=== PATIENT | female | born 1980 | race Caucasian/White ===

== ENCOUNTER 2018-03-15 09:11 | Day surgery (SDC) | payer OTHER ==
[2018-03-15] MEDS ORDERED: SODIUM CHLORIDE 0.9% 500 ML IV ONE (09:32)
[2018-03-15] MEDS ORDERED: ONDANSETRON HCL IV 4 MG/2 ML VIAL IV ONE (09:32)
[2018-03-15] MEDS ORDERED: HYDROMORPHONE HCL 2 MG/ML VIAL IVP ONE ×3 (09:32→10:53)
--- NOTE | 2018-03-15 09:43 | Emergency Department Record ---
History of Present Illness - General Chief Complaint: Abdominal Pain Stated Complaint: UPPER RIGHT QUAD PAIN Time Seen by Provider: 03/15/18 09:30 Source: Patient Mode of Arrival: Ambulatory Limitations: No limitations - History of Present Illness Initial Comments: The patient is here with sharp stabbing RUQ AP for the last 5 hours. The symptoms have been intermittent and fairly severe right now. She has had nausea and vomiting with it and the pain seems to radiate around to her side. There has been no lower AP, fever, chills, or dysuria. MD Complaint: Abdominal pain Onset/Timin -: Hour(s) Location: RUQ Radiation: Back Severity: Moderate Severity scale (1-10): 7 Quality: Aching, Stabbing Consistency: Constant Improves With: Nothing Worsens With: Nothing Context: Other Associated Symptoms: Denies other symptoms - Related Data LMP Date: 01/26/18 LMP (females 10-50): 1 month ago Patient : No (Possible) Allergies Allergy/AdvReac Type Severity Reaction Status Date / Time latex Allergy RASH Verified 03/15/18 09:16 peanut Allergy VOMITING Verified 03/15/18 09:16 silicone Allergy BLISTERS Verified 03/15/18 09:16 codeine AdvReac VOMITING Verified 03/15/18 09:14 mushroom AdvReac HEADACHE Verified 03/15/18 11:58 Travel Screening - Travel/Exposure Within Last 30 Days Have you traveled within the last 30 days?: No - Travel/Exposure Within Last Year Have you traveled outside the [place] in the last year?: No - Additonal Travel Details Have you been exposed to anyone with a communicable illness?: No - Travel Symptoms Symptom Screening: None Review of Systems Constitutional: Denies: Chills, Fever Eyes: Denies: Eye discharge ENT: Denies: Congestion Respiratory: Denies: Cough, Dyspnea Past Medical History - SOCIAL HISTORY Smoking Status: Current every day smoker Alcohol Use: Rare Drug Use: None - RESPIRATORY Hx Respiratory Disorders: No - CARDIOVASCULAR Hx Cardio Disorders: No - NEURO Hx Neuro Disorders: No - GI Hx GI Disorders: No - Hx Genitourinary Disorders: No - ENDOCRINE Hx Endocrine Disorders: No - MUSCULOSKELETAL Hx Musculoskeletal Disorders: No - PSYCH Hx Psych Problems: No - HEMATOLOGY/ONCOLOGY Hx Hematology/Oncology Disorders: No Family Medical History Any Significant Family History?: Yes Hx Cancer: Mother, Grandparents Hx Diabetes: Father, Grandparents Hx Heart Disease: Father, Grandparents Hx HTN: Father, Grandparents Physical Exam - General General Appearance: Alert, Oriented x3, Cooperative, Mild distress (due to AP.) - Head Head exam: Atraumatic, Normocephalic - Eye Eye exam: Normal appearance, PERRL - Neck Neck exam: Normal inspection, Full ROM. negative: Tenderness - Respiratory Respiratory exam: Normal lung sounds bilaterally. negative: Respiratory distress - Cardiovascular Cardiovascular Exam: Regular rate, Normal rhythm, Normal heart sounds Course Vital Signs 03/15/18 09:16 Temperature 97.8 F Pulse Rate 72 Respiratory 20 Rate Blood Pressure 146/78 Pulse Ox 94 L - Reevaluation(s) Reevaluation #1: The patient is doing better but is still having significant pain. I did explain the US report and the need for surgical consultation. We will contact Dr. Lowery for further evaluation. 03/15/18 10:55 Reevaluation #2: The patient is doing better at this time but is still in pain. I did discuss the case with Dr. Lowery and he would like to admit the patient to the hospital overnight and do surgery in the AM tomorrow. I did discuss this with the patient and she did agree to that plan vs being transferred to another hospital. 03/15/18 11:08 Medical Decision Making - Data Complexity MDM Data: Labs Ordered and/or Reviewed, X-Ray Ordered and/or Reviewed - Lab Data Result diagrams: 03/15/18 09:25 03/15/18 09:25 - Radiology Data Radiology results: Report reviewed (US: multiple gallstones with a stone stuck in the neck of the GB, O/W neg.) Disposition Disposition: Admit Clinical Impression: Biliary calculus with obstruction without cholecystitis Disposition: Still a Patient at [facility] Decision to Admit: Admit from ER Decision to Admit Date: 03/15/18 Decision to Admit Time: 11:09 Accepting Physician: Beverley Time Discussed w/Accepting Physician: 11:09 Condition: (2) Stable Time of Disposition: 11:10 Quality - Quality Measures Quality Measures: N/A - Blood Pressure Screening View Details: Yes Does Patient Have Any of the Following: No Blood Pressure Classification: Normal BP Reading Systolic Measurement: 119 Diastolic Measurement: 67 Screening for High Blood Pressure: < Normal BP, F/U Not Required > [[id number]]
[2018-03-15 09:48] LABS: BASO % 0.4 % (0-6); EOS % 3.3 % (0-6); HEMATOCRIT 44.4 % (35.0-47.0); LYMPH % 23.6 % (16-45); MEAN CELL VOLUME 92.3 fl (81-97); MEAN CORPUSCULAR HEMOGLOBIN 31.2 pg (27-33); MEAN CORPUSCULAR HGB CONC 33.8 g/dl (32-36); MEAN PLATELET VOLUME 11.5 fl (7.4-10.4); MONO % 7.7 % (0-9); PLATELET COUNT 290 K/uL (130-400); RED BLOOD COUNT 4.81 M/uL (3.80-5.40); RED CELL DISTRIBUTION WIDTH 12.8 % (11.5-14.5); WHITE BLOOD COUNT W/O DIFF 9.9 K/uL (4.2-12.2)
[2018-03-15 09:50] LABS: URINE APPEARANCE CLEAR; URINE BILIRUBIN NEGATIVE (NEGATIVE); URINE BLOOD NEGATIVE (NEGATIVE); URINE COLOR YELLOW; URINE GLUCOSE (UA) NEGATIVE (NEGATIVE); URINE KETONE NEGATIVE (NEGATIVE); URINE LEUKOCYTE ESTERASE NEGATIVE (NEGATIVE); URINE NITRITE NEGATIVE (NEGATIVE); URINE PROTEIN NEGATIVE (NEGATIVE); URINE UROBILINOGEN 0.2 E.U./dL (0.20 - 1.00)
[2018-03-15 10:14] LABS: BLOOD UREA NITROGEN 9 mg/dL (6-20); CREATININE 0.5 mg/dL (0.5-0.9); EST GLOMERULAR FILTRATION RATE > 60 mL/min
[2018-03-15 10:15] LABS: TOTAL PROTEIN 7.1 g/dL (6.6-8.7)
[2018-03-15 10:17] LABS: GLUCOSE,RANDOM 99 mg/dL (74-109)
[2018-03-15 10:19] LABS: ALT/SGPT 18 U/L (<33); AST/SGOT 16 U/L (10.0-35.0)
[2018-03-15 10:20] LABS: ALBUMIN 4.6 g/dL (4.0-5.0); ALKALINE PHOSPHATASE 90 U/L (35-104); LIPASE 32 U/L (13-60)
[2018-03-15 10:21] LABS: BILIRUBIN,DIRECT < 0.2 mg/dL (0-0.3)
[2018-03-15] MEDS ORDERED: HYDROMORPHONE HCL 2 MG/ML VIAL IV PRN (11:46)
[2018-03-15] MEDS ORDERED: ONDANSETRON HCL IV 4 MG/2 ML VIAL IVP PRN (11:46)
[2018-03-15] MEDS: PANTOPRAZOLE SODIUM IV 40 MG VIAL IV SCH (12:10)
[2018-03-15] MEDS: CEFOTETAN DISODIUM 1 G in 0.9 % SODIUM CHLORIDE 100ML 100 ML IVPB SCH (13:40)
[2018-03-15] MEDS: 0.9 % SODIUM CHLORIDE 1000ML 1,000 ML IV PRN (14:41)
[2018-03-15] MEDS ORDERED: CALCIUM CARBONATE 500 MG TAB.CHEW PO PRN (17:31)
[2018-03-15] MEDS ORDERED: KETOROLAC 30 MG/ML VIAL IVP PRN (17:55)
[2018-03-15] MEDS ORDERED: PROMETHAZINE HCL 25 MG TABLET PO ONE (17:57)
[2018-03-15] MEDS ORDERED: PROMETHAZINE HCL 25 MG in 0.9 % SODIUM CHLORIDE 100ML 100 ML IVPB PRN (18:06)
[2018-03-16] MEDS: CEFOTETAN DISODIUM 1 G in 0.9 % SODIUM CHLORIDE 100ML 100 ML IVPB SCH ×3 (00:22→11:35)
[2018-03-16] MEDS: 0.9 % SODIUM CHLORIDE 1000ML 1,000 ML IV PRN (05:18)
--- NOTE | 2018-03-16 07:23 | ULTRASOUND REPORT ---
EXAM: LIMITED ULTRASOUND OF THE ABDOMEN HISTORY: SEVERE BACK PAIN. TECHNIQUE: Transverse and longitudinal sonographic images of the right upper quadrant were obtained. Comparison: None. FINDINGS: There are several shadowing gallstones within the gallbladder lumen. One of these appears to be in the region of the gallbladder neck. The gas plumber did not definitively demonstrate mobility of all of the stones. No gallbladder wall thickening or pericholecystic fluid. The CBD measures 4 mm. IMPRESSION: CHOLELITHIASIS. POSSIBLE NONMOBILE STONE IN THE REGION OF THE GALLBLADDER NECK. NO GALLBLADDER WALL THICKENING OR PERICHOLECYSTIC FLUID. THE CBD IS NOT DILATED. JOB NUMBER: [id number] MTDD
[2018-03-16] MEDS: PANTOPRAZOLE SODIUM IV 40 MG VIAL IV SCH (10:48)
[2018-03-16] MEDS ORDERED: FAMOTIDINE 20MG TABLET PO ONE (11:30)
[2018-03-16] MEDS ORDERED: METOCLOPRAMIDE 10 MG TABLET PO ONE (11:30)
[2018-03-16] MEDS ORDERED: ACETAMINOPHEN 1,000 MG/100 ML BTL IV ONE (11:30)
[2018-03-16] MEDS ORDERED: MECLIZINE 25 MG TABLET PO ONE (11:30)
[2018-03-16] MEDS ORDERED: HYDROCODONE/APAP 5/325MG TABLET PO PRN ×2 (12:54)
[2018-03-16] MEDS ORDERED: BUPIVACAINE 0.25% W/EPI MPF 30ML VIAL IVP ONE (14:00)
[2018-03-16] MEDS ORDERED: SUGAMMADEX SODIUM 200 MG/2 ML VIAL IV ONE (14:04)
[2018-03-16] MEDS ORDERED: MIDAZOLAM HCL 2MG/2ML VIAL IV ONE (14:04)
[2018-03-16] MEDS ORDERED: ONDANSETRON HCL IV 4 MG/2 ML VIAL IVP ONE (14:04)
[2018-03-16] MEDS ORDERED: ROCURONIUM BROMIDE 50MG/5ML VIAL IV ONE (14:04)
[2018-03-16] MEDS ORDERED: LIDOCAINE 2% MDV (20MG/ML) 20ML VIAL IV ONE (14:04)
[2018-03-16] MEDS ORDERED: SEVOFLURANE 250 ML INH ONE (14:04)
[2018-03-16] MEDS ORDERED: LABETALOL HCL 5MG/ML, 20ML VIAL IV ONE (14:04)
[2018-03-16] MEDS ORDERED: PROPOFOL 10 MG/ML VIAL IV ONE (14:04)
[2018-03-16] MEDS ORDERED: KETOROLAC 30 MG/ML VIAL IVP ONE (14:04)
[2018-03-16] MEDS ORDERED: DEXAMETHASONE 4 MG/ML 1ML VIAL IVP ONE (14:04)
[2018-03-16] MEDS ORDERED: *PACU ONLY* KETAMINE HCL 10 MG/ML (20ML) VIAL IV ONE (14:04)
--- NOTE | 2018-03-19 13:10 | Operative Note ---
DATE OF SURGERY: 03/16/2018 Surgeon: Ovi Lowery DO PREOPERATIVE DIAGNOSIS: Acute cholecystitis. POSTOPERATIVE DIAGNOSIS: Acute cholecystitis. OPERATION: Laparoscopic cholecystectomy. Indication: The patient is a 37-year-old female who is having ongoing right subcostal postprandial pain. She was seen in the ER where ultrasound was done. This did show a stone stuck in the gallbladder neck. She was too painful to send home. We did discuss cholecystectomy versus medical management. She desired surgical intervention. Risks include but are not limited to bleeding, infection, ductal injury, possible conversion to open, postoperative bile leak. She understood this fully. PROCEDURE: Thereafter, consent was signed and questions answered. She was taken to the operating room and placed in a supine position. General anesthesia was administered per the department of anesthesia. The patient's abdomen was prepped and draped in the usual sterile fashion. Adequate timeout was performed. She did receive preoperative Omnifev as well as DVT prophylaxis. The supraumbilical region was anesthetized with a total of 5 mL of 0.25% Sensorcaine with epinephrine. This position was selected due to the patient's body habitus. A 2 cm incision was made. This was carried down bluntly to the anterior rectus fascia. This was incised. Arnold clamps were placed on the fascial edges and brought up into the wound. Stay sutures of 0 Vicryl were placed. Posterior rectus sheath was identified and incised. The peritoneal cavity was entered bluntly. At this time, a 10 mm blunt Madeleine port was placed. Adequate pneumoperitoneum was established. Under direct visualization, additional 5 mm epigastric and two 5 mm right subcostal ports were placed. The gallbladder was identified and noted to be very edematous, distended. This was lifted anteriorly and there were dense omental adhesions which were swept down exposing Ayah's pouch. This was retracted further cephalad and laterally opening up the angle of Calot. The hepatocystic triangle was thoroughly dissected out. The distal half of the gallbladder was released from the cystic plate elongating our retroductal window. The cystic duct and cystic artery were circumferentially dissected free. This was cleared of all tissue except those 2 structures. Excellent critical view of safety was obtained. Each one was doubly clipped and cut in a standard fashion. Gallbladder was taken off the liver bed with Arjeev harmonic. This was extracted through the umbilical port site. Right upper quadrant was rechecked and found to be hemostatic. No bleeding. No bile leak. No bowel injury noted. The patient was leveled out. The pneumoperitoneum was released. All ports were removed. The fascia was closed with 0 Vicryl in a [id number] fashion. The skin at all ports was closed with 4-0 Vicryl. The patient was taken to the recovery room in satisfactory condition. FINDINGS AT THE TIME OF SURGERY: Acute cholecystitis. MTDD
== END 2018-03-16 14:05 | disposition home or self-care (01) ==
LOC: ER 09:11 → UNDOADMOB 11:39 → MEDSURG 11:39 → SUR 11:40 → UNDODISOB 03-16 14:05 → SUR 03-16 14:05
PROVIDERS: ATTEND Surgery
DX: K81.0 Acute cholecystitis (principal)
CPT/HCPCS: 47562; 00790; 99285 ×2; 96376; 96374; 96375; 83690; 85025; 80076; 80048; 81003; 84703; 76705; J1885 ×2; J2405 ×2; J1170; J3490; C9113; J2550